=== PATIENT | female | born 1985 | race African-American/Black ===

== ENCOUNTER 2021-07-15 17:40 | Emergency (ER) | payer SELFPAY ==
[~2021-07-15] VITALS: Ht 172.7 cm; Wt 86.2 kg
[2021-07-15 18:15] VITALS: BP 108/91
== END 2021-07-15 18:47 | disposition hospice, home (50) ==
LOC: ER 17:43
DX: Z53.21 Procedure and treatment not carried out due to patient leaving prior to being seen by health care provider (principal); L29.9 Pruritus, unspecified